=== PATIENT | female | born 1990 | race Caucasian/White ===

== ENCOUNTER → 2017-02-05 | Outpatient (CLI) | payer BC ==
[2016-03-26 08:35] VITALS: BP 143/82
[~2017-02-05] MED LIST: CHOL100013 PO
--- NOTE | 2017-02-06 09:55 | KCIC ---
Right breast ultrasound: Reason for examination: Right breast lump. Comparison is made to previous study dated 08/21/2016. Ultrasound examination was performed in the area of clinical concern. In the area of previous clinical concern at the 10 o'clock position 10 centimeters from the nipple, there is no discrete cystic or solid nodule or architectural distortion. In the right axilla which apparently corresponds to the area of present concern, there are benign lymph nodes but no other focal cystic or solid lesions. Impression: Benign appearing lymph nodes in the right axilla. No other focal abnormalities seen in the right breast. BI-RADS category 1: Negative. This patient's information has been entered into a reminder system for the patient to be notified with the results of this examination and a target date for her next mammograms. Electronically signed by: Mayra Andrea MD (Feb 06, 2017 09:53:50)
== END | disposition home or self-care (01) ==
LOC: KCIC MAMMO 09:43
PROVIDERS: ATTEND Nurse Practitioner
DX: N63 Unspecified lump in breast (principal)
CPT/HCPCS: 76641

== ENCOUNTER → 2019-11-24 | Outpatient (CLI) | payer BC, OTHER ==
[2016-03-26 08:35] VITALS: BP 143/82
--- NOTE | 2019-11-24 09:32 | KCIC ---
MRI of the brain without contrast 11/24/2019 Clinical History: Chronic migraine headaches. Technique: Unenhanced T1-weighted and FLAIR sagittal and axial, T2-weighted axial and coronal and gradient echo and diffusion-weighted axial images of the brain were obtained. Findings: No previous studies are available for comparison. The ventricles and sulci are within normal limits in size and configuration. Patchy and a few small scattered areas of increased signal intensity are seen within the periventricular and subcortical white matter of both cerebral hemispheres on the FLAIR and T2-weighted images. These measure 1 to 7 mm in size. Their MRI appearance is nonspecific. They could represent areas of minimal small vessel ischemic disease. They can be seen in patients with a history of migraine headaches. They can also be seen in the setting of a demyelinating disorder such as multiple sclerosis. No acute parenchymal abnormality is seen. No extra-axial fluid collection is seen. There is no MRI evidence of acute ischemia/infarction. The paranasal sinuses are essentially clear. Normal flow voids are seen within the major vascular structures surrounding the brain parenchyma. Impression: 1. Patchy and a few small scattered areas of increased signal intensity are seen within the white matter of both cerebral hemispheres on the FLAIR and T2-weighted images. These have a nonspecific MRI appearance as discussed above. 2. No acute parenchymal abnormality is seen. Electronically signed by: Kirill Garber MD (11/24/2019 9:29 AM) [email or web address]
== END | disposition home or self-care (01) ==
LOC: KCIC MRI 07:54
PROVIDERS: ATTEND Psychiatry & Neurology Neurology with Special Qualifications in Child Neurology
DX: G43.909 Migraine, unspecified, not intractable, without status migrainosus (principal)
CPT/HCPCS: 70551

== ENCOUNTER → 2019-12-25 | Outpatient (CLI) | payer OTHER ==
[2019-12-25 09:35] VITALS: BP 128/72
[2019-12-25 09:55] VITALS: BP 122/76
[2019-12-25 10:15] VITALS: BP 140/72
--- NOTE | 2019-12-25 10:43 | NUR ---
Discharge Note: CHAVA GOODWIN Discharge instructions and discharge home medications reviewed with Patient and a copy given. All questions have been answered and understanding verbalized. The following instructions and handouts were given: Post LP. Discontinued lines and drains: None to DC. Patient discharged to Home with Father via Car.
[2019-12-25 11:24] LABS: CSF PROTEIN 49.5 mg/dL (15.0-45.0)
--- NOTE | 2019-12-25 11:59 | RAD ---
Examination: LUMBAR PUNCTURE History: Demyelinating nervous system disease. Abnormal brain MRI. Comparison/Correlation: None Findings: Risks and benefits of lumbar puncture by fluoroscopic guidance were discussed with the patient and informed consent was obtained. Fluoroscopy was utilized 1.5 minutes. Single fluoroscopic image was acquired. Patient was placed in the prone GREENLAND[place] position. Cleansing with Betadine at the L4-5 level was performed. Sterile drapes were placed. A total of 15 cc 1 percent lidocaine was administered at this level. An 18-gauge needle was placed. A 25-gauge spinal needle was placed into the thecal sac. 13 cc clear CSF was withdrawn with slow active suction with a small syringe. Specimens were placed in nearly equal quantities into 4 tubes. Impression: Successful lumbar puncture. Specimens sent to lab. The patient tolerated the procedure well without immediate complications. PQRS Compliance Statement: One or more of the following individualized dose reduction techniques were utilized for this examination: 1. Automated exposure control 2. Adjustment of the mA and/or kV according to patient size 3. Use of iterative reconstruction technique Electronically signed by: Hayden Magdaleno MD (12/25/2019 11:56 AM) [facility]
[2019-12-25 13:24] LABS: CSF COLOR COLORLESS
[2019-12-25 13:25] LABS: CSF CLARITY CLEAR; CSF RBC COUNT 0 /cmm (Not Established); CSF WBC COUNT 0 /cmm (Not Established)
[2019-12-30 15:12] LABS: ALBUMIN,CSF 23 mg/dL (11-48); ALBUMIN,SERUM 4.3 g/dL (3.8-4.8); CSF IGG INDEX 0.5 (0.0-0.7); IGG,SERUM 1161 mg/dL (700-1600)
== END ==
LOC: RAD 07:04
PROVIDERS: ATTEND Psychiatry & Neurology Neurology with Special Qualifications in Child Neurology
DX: G37.9 Demyelinating disease of central nervous system, unspecified (principal)
CPT/HCPCS: 62270; 62328; 82787; 82945; 83916; 84157; 87071; 87075; 87102; 87252; 89051